=== PATIENT | male | born 1970 | race Caucasian/White ===

== ENCOUNTER 2017-01-13 00:11 | Emergency (ER) | payer OTHER ==
[~2017-01-13] VITALS: Ht 190.5 cm; Wt 72.2 kg
[~2017-01-13 00:11] MED LIST: ADVAIR HFA120 INHALA IH; ALBUTEROL17 GM IH; ALBUTEROL2.5 MG/3 M IH; ALPRAZOLAM0.5 MG PO; AMOXIL875 MG PO; AUGMENTIN500 MG PO; AUGMENTIN875 MG PO; Advair HFA 230/21 IH; BACTRIM,SEPT1 TABLET PO; BENZONATATE100 MG PO; BUSPAR5 MG PO; Bactrim,Septra DS 80 PO; Bactrim,Septra Singl PO; CEFTIN500 MG PO; CLEOCIN300 MG PO; COMBIVENT RESPIM4 GM IH; COUMADIN2 MG PO; Caltrate 600+D Plus PO; Cipro PO; DELTASONE10 MG PO; DELTASONE20 MG PO; Diflucan PO; ENDOCET 5-3251 EACH PO; ESCITALOPRAM OX10 MG PR; FAMOTIDINE20 MG PO; FLOVENT 22120 INHALA IH; Flagyl PO; HYDROCODON-ACE1 EAC7 PO; Habitrol,Nicoderm CQ TD; IBUPROFEN600 MG PO; LEVAQUIN500 MG PO; LEVAQUIN750 MG PO; LEVOFLOXACIN750 MG PO; Lactinex,Floranex PO; Levaquin PO; METOCLOPRAMIDE10 MG PO; MOTRIN600 MG PO; NAPROSYN500 MG PO; NAPROXEN500 MG PO; NIX 5% CREAM60 GM TP; NOHOMEMEDS; NORVIR100 M1; NORVIR100 M1 PO; NORVIR100 MG PO; Norvir PO; OPANA ER15 MG PO; OXYCODONE HCL30 MG PO; OXYCODONE15 MG PO; OXYMORPHONE HCL15 MG PO; OxyCODONE PO; PERCOCET; PERCOCET 5/31 TABLET PO; PHENERGAN12.5 M1 PO; PREDNISONE10 MG PO; PREDNISONE50 MG PO; PREZISTA PO; PREZISTA400 MG PO; PREZISTA800 MG PO; PRILOSEC20 MG PO; PROAIR HFA8.5 GM IH; Proventil,Ventolin H IH; ROXICODONE30 MG PO; Remeron PO; SEPTRA 80-4001 EACH PO; SPIRIVA1 INHALATI IH; STRIBILD TABLE1 EACH PO; SULFAMETHOXAZO1 EACH PO; TESSALON PERLE100 MG PO; TRUVADA 200 MG1 EACH PO; TRUVADA1 TABLET; TRUVADA1 TABLET PO; Tylenol Extra Streng PO; Tylenol Regular Stre PO; VENTOLIN HFA18 GM IH; VENTOLIN17 GM IH; Vancocin Oral Soluti PO; WARFARIN SODIUM5 MG PO; WELLBUTRIN SR150 MG PO; Xanax PO; ZITHROMAX Z-PA250 MG PO; ZITHROMAX600 MG PO; predniSONE PO
[2017-01-13 01:00] LABS: HEMATOCRIT 39.5 % (38.0-50.0); MCH 28.2 PG (29.0-34.0); MCHC 31.9 G/DL (30.0-36.0); MCV 88.4 FL (86-99); MEAN PLAT.VOLUME 10.9 uM^3 (9.0-12.4); PLATELET COUNT 266 K/uL (156-360); RBC DIS.WIDTH-CV 16.7 % (11.8-14.6); RBC DIS.WIDTH-SD 53.7 % (39-53); RED BLOOD COUNT 4.47 M/uL (4.00-5.50); WHITE BLOOD COUNT 8.6 K/uL (4.1-10.2)
[2017-01-13 01:13] LABS: CHLORIDE 102 mEq/L (99-109); POTASSIUM 4.2 mEq/L (3.7-5.4); SODIUM 140 mEq/L (136-147)
[2017-01-13 01:15] LABS: GLUCOSE 108 mg/dL (70-99)
[2017-01-13 01:16] LABS: ANION GAP 13 MEQ/L (2-14)
[2017-01-13 01:17] LABS: TOTAL BILIRUBIN 0.2 mg/dL (0.0-1.0)
[2017-01-13 01:18] LABS: ALKALINE PHOSPHATASE 116 IU/L (3-129)
[2017-01-13 01:19] LABS: GFR ESTIMATE (CALCULATED) > 59 mL/min/
[2017-01-13 01:20] LABS: UREA NITROGEN (BUN) 19 mg/dL (9-23)
[2017-01-13] MEDS ORDERED: KEFLEX500 MG PO (02:36)
[2017-01-13 02:40] VITALS: BP 99/58
== END 2017-01-13 02:52 | disposition home or self-care (01) ==
LOC: EME 00:11
PROVIDERS: Physician Assistant
DX: L03.211 Cellulitis of face (principal); Z21 Asymptomatic human immunodeficiency virus [HIV] infection status
CPT/HCPCS: 70487; 80053; 85027; 99281; 99284; J7030

== ENCOUNTER 2017-02-10 18:48 | Inpatient (IN) | payer OTHER ==
[~2017-02-10] VITALS: Ht 190.5 cm; Wt 68.3 kg
[~2017-02-10 18:48] MED LIST changes: +KEFLEX500 MG PO
[2017-02-10 19:27] LABS: BASE EXCESS 5.1 mEq/L (-3 to +3); CARBOXY HGB 5.4 % (0-5); COMMENTS - BLOOD GASES A+C+; DEVICE RA; METHEMOGLOBIN 0.6 % (0-1.5); PCO2 58 mm Hg (35-45); PO2 70 mm Hg (80-100); SITE RR; TOTAL RESP RATE 17 resp/min; pH 7.35 (7.35-7.45)
[2017-02-10 19:31] LABS: HEMATOCRIT 33.8 % (38.0-50.0); MCH 27.5 PG (29.0-34.0); MCHC 31.4 G/DL (30.0-36.0); MCV 87.6 FL (86-99); PLATELET COUNT 273 K/uL (156-360); RBC DIS.WIDTH-CV 16.9 % (11.8-14.6); RBC DIS.WIDTH-SD 54.5 % (39-53); RED BLOOD COUNT 3.86 M/uL (4.00-5.50); WHITE BLOOD COUNT 13.5 K/uL (4.1-10.2)
[2017-02-10 19:39] LABS: CHLORIDE 97 mEq/L (99-109); SODIUM 138 mEq/L (136-147)
[2017-02-10 19:41] LABS: GLUCOSE 129 mg/dL (70-99)
[2017-02-10 19:43] LABS: ANION GAP 15 MEQ/L (2-14)
[2017-02-10 19:45] LABS: GFR ESTIMATE (CALCULATED) > 59 mL/min/
[2017-02-10 19:46] LABS: UREA NITROGEN (BUN) 19 mg/dL (9-23)
[2017-02-10 19:52] LABS: TROP-I INTERPRETATION NEGATIVE; TROPONIN-I 0.02 ng/mL (0.0-0.30)
[2017-02-11 01:00] VITALS: BP 96/51
[2017-02-11 03:00] VITALS: BP 92/53
[2017-02-11 03:19] LABS: ADD MIUA? YES; BILIRUBIN NEGATIVE; BLOOD SMALL; COLOR YELLOW ((YELLOW)); GLUCOSE (STRIP) NEGATIVE; KETONES NEGATIVE; LEUKOCYTES NEGATIVE; NITRITE NEGATIVE; PROTEIN (STRIP) NEGATIVE; SPECIFIC GRAVITY 1.013 (1.000-1.030); UROBILINOGEN 0.2 MG/DL (0.2-1.0)
[2017-02-11 03:23] LABS: BACTERIA NONE SEEN /HPF; EPITHELIAL CELLS RARE /HPF; MUCUS TRACE /LPF; RED BLOOD CELLS 0-5 /HPF (0-5); UCUL ADDED? NO; WHITE BLOOD CELLS 0-5 /HPF (0-5)
[2017-02-11] MEDS ORDERED: GENVOYA TABLET1 EACH PO (04:59)
[2017-02-11] MEDS ORDERED: BACTRIM,SEPT1 TABLE1 PO (05:00)
[2017-02-11 05:13] LABS: EOSINOPHIL (%) 0.2 % (0-5); IMMATURE GRANULOCYTE (%) 0.8 % (0.0-0.7); IMMATURE GRANULOCYTE COUNT 0.1 K/uL; INSTRUMENT ABS NEUTROPHIL CT 10.8 K/uL; LYMPHOCYTE COUNT 0.4 K/uL (1.0-2.8); MCH 28.8 PG (29.0-34.0); MCHC 31.9 G/DL (30.0-36.0); MCV 90.1 FL (86-99); MEAN PLAT.VOLUME 10.6 uM^3 (9.0-12.4); MONOCYTE (%) 1.8 % (3-12); MONOCYTE COUNT 0.2 K/uL (0-0.8); NEUTROPHIL (%) 93.5 % (45-76); NEUTROPHIL COUNT 10.8 K/uL (1.8-6.4); PLATELET COUNT 226 K/uL (156-360); RBC DIS.WIDTH-CV 16.9 % (11.8-14.6); RBC DIS.WIDTH-SD 56.1 % (39-53); RED BLOOD COUNT 3.44 M/uL (4.00-5.50); WHITE BLOOD COUNT 11.6 K/uL (4.1-10.2)
[2017-02-11 05:38] LABS: ALKALINE PHOSPHATASE 115 IU/L (3-129); ANION GAP 7 MEQ/L (2-14); CHLORIDE 103 MEQ/L (99-109); DIRECT BILIRUBIN 0.1 mg/dL (0.0-0.3); GFR ESTIMATE (CALCULATED) > 59 mL/min/; GLUCOSE 161 mg/dL (70-99); POTASSIUM 4.7 MEQ/L (3.7-5.4); SAMPLE HEMOLYSIS CHECK 0; SAMPLE ICTERIC CHECK 0; SAMPLE LIPEMIA CHECK 0; SODIUM 140 MEQ/L (136-147); TOTAL BILIRUBIN 0.3 MG/DL (0.0-1.0); UREA NITROGEN (BUN) 16 mg/dL (9-23)
[2017-02-11] MEDS ORDERED: PERCOCET 10/1 TABLET PO (05:41)
[2017-02-11] MEDS ORDERED: OPANA IR10 MG PO (05:43)
[2017-02-11 07:50] VITALS: BP 83/50
[2017-02-11 08:50] LABS: INTERNAL CONTROL VALID? YES
[2017-02-11 09:39] VITALS: BP 102/59
[2017-02-11] MEDS ORDERED: PROAIR HFA8.5 GM IH (10:56)
[2017-02-11 11:17] VITALS: BP 83/56
[2017-02-11 11:38] LABS: HIV INDEX 1247.78
[2017-02-11 11:39] LABS: HIV-1/2 AB/AG COMBO REACTIVE
[2017-02-11] MEDS ORDERED: OXYMORPHONE HCL30 MG PO (11:40)
[2017-02-11] MEDS ORDERED: OXYCODONE HCL30 MG PO (11:41)
[2017-02-11 15:44] VITALS: BP 98/54
[2017-02-13 13:03] LABS: HIV RNA QUANT LOG10 RESULT 4.2 Log(10) (<1.30)
[2017-02-13 20:20] LABS: HIV 1 Antibody Positive (Negative); HIV 2 Antibody Negative (Negative)
== END 2017-02-11 16:35 | disposition left against medical advice (07) | DRG 190 ==
LOC: EME 18:48 → EDOF 22:56 → ENRESERV 23:05 → 4EAST 02-11 00:45
PROVIDERS: Emergency Medicine; Hospitalist
DX: J44.0 Chronic obstructive pulmonary disease with (acute) lower respiratory infection (principal); J18.9 Pneumonia, unspecified organism; B20 Human immunodeficiency virus [HIV] disease; I25.10 Atherosclerotic heart disease of native coronary artery without angina pectoris; M19.90 Unspecified osteoarthritis, unspecified site; F32.9 Major depressive disorder, single episode, unspecified; G43.909 Migraine, unspecified, not intractable, without status migrainosus; F17.200 Nicotine dependence, unspecified, uncomplicated; Z90.49 Acquired absence of other specified parts of digestive tract; Z95.5 Presence of coronary angioplasty implant and graft; Z93.3 Colostomy status; Z86.711 Personal history of pulmonary embolism; Z85.038 Personal history of other malignant neoplasm of large intestine
CPT/HCPCS: 36600; 71020; 80048; 80076; 81003; 82803; 83605; 84484; 85025; 85027; 86355 90; 86359 90; 86360 90; 86701 90; 86702 90; 86703; 87040; 87070; 87077; 87181; 87185; 87205; 87449; 87536; 93005; 94640; 99202; 99281; 99285; J0456; J1650; J2543; J3370; J7030; J7040; J7042; J7050; J7060; J7120; J7512; S0039

== ENCOUNTER 2017-02-11 20:15 | Inpatient (IN) | payer OTHER ==
[~2017-02-11] VITALS: Ht 190.5 cm; Wt 73.0 kg
[~2017-02-11 20:15] MED LIST changes: +BACTRIM,SEPT1 TABLE1 PO; +GENVOYA TABLET1 EACH PO; +OPANA IR10 MG PO; +OXYMORPHONE HCL30 MG PO; +PERCOCET 10/1 TABLET PO
[2017-02-11 21:19] LABS: HEMATOCRIT 31.2 % (38.0-50.0); MCH 28.3 PG (29.0-34.0); MCHC 31.7 G/DL (30.0-36.0); MCV 89.1 FL (86-99); MEAN PLAT.VOLUME 9.9 uM^3 (9.0-12.4); PLATELET COUNT 270 K/uL (156-360); RBC DIS.WIDTH-CV 16.5 % (11.8-14.6); RBC DIS.WIDTH-SD 54.4 % (39-53); WHITE BLOOD COUNT 13.4 K/uL (4.1-10.2)
[2017-02-11 21:29] LABS: SODIUM 142 mEq/L (136-147)
[2017-02-11 21:31] LABS: CHLORIDE 107 mEq/L (99-109); GLUCOSE 141 mg/dL (70-99)
[2017-02-11 21:33] LABS: ANION GAP 13 MEQ/L (2-14)
[2017-02-11 21:35] LABS: GFR ESTIMATE (CALCULATED) > 59 mL/min/
[2017-02-11 21:36] LABS: UREA NITROGEN (BUN) 17 mg/dL (9-23)
[2017-02-11 23:56] LABS: TROP-I INTERPRETATION NEGATIVE; TROPONIN-I < 0.01 ng/mL (0.0-0.30)
[2017-02-12 01:17] LABS: INFLUENZA A VIRAL ANTIGEN NEGATIVE; INFLUENZA B VIRAL ANTIGEN NEGATIVE
[2017-02-12 04:06] VITALS: BP 101/63
== END 2017-02-12 04:08 | disposition left against medical advice (07) | DRG 190 ==
LOC: EME 20:15 → EDOF 02-12 02:17 → ENRESERV 02-12 02:17 → CANRESERV 02-12 02:55 → ENRESERV 02-12 02:55 → EDOF 02-12 04:08
PROVIDERS: Emergency Medicine
DX: J44.0 Chronic obstructive pulmonary disease with (acute) lower respiratory infection (principal); J18.9 Pneumonia, unspecified organism; B20 Human immunodeficiency virus [HIV] disease; F17.200 Nicotine dependence, unspecified, uncomplicated; F12.90 Cannabis use, unspecified, uncomplicated; F32.9 Major depressive disorder, single episode, unspecified; G43.909 Migraine, unspecified, not intractable, without status migrainosus; Z85.038 Personal history of other malignant neoplasm of large intestine; Z90.49 Acquired absence of other specified parts of digestive tract; Z93.3 Colostomy status; Z86.711 Personal history of pulmonary embolism
CPT/HCPCS: 71020; 80048 91; 81003; 83605; 84484; 85027; 87040; 87070; 87205; 87449; 87502; 93005; 94640; 99281; 99285; J1100; J1956

== ENCOUNTER 2017-02-12 21:17 | Inpatient (IN) | payer OTHER ==
[~2017-02-12] VITALS: Ht 190.5 cm; Wt 75.1 kg
[2017-02-13 00:58] LABS: HEMATOCRIT 30.7 % (38.0-50.0); MCH 27.4 PG (29.0-34.0); MCHC 30.3 G/DL (30.0-36.0); MCV 90.3 FL (86-99); MEAN PLAT.VOLUME 10.3 uM^3 (9.0-12.4); PLATELET COUNT 365 K/uL (156-360); RBC DIS.WIDTH-CV 16.9 % (11.8-14.6); RBC DIS.WIDTH-SD 56.8 % (39-53); WHITE BLOOD COUNT 8.6 K/uL (4.1-10.2)
[2017-02-13 01:10] LABS: CHLORIDE 108 mEq/L (99-109); POTASSIUM 4.7 mEq/L (3.7-5.4); SODIUM 142 mEq/L (136-147)
[2017-02-13 01:12] LABS: GLUCOSE 141 mg/dL (70-99)
[2017-02-13 01:13] LABS: ANION GAP 9 MEQ/L (2-14)
[2017-02-13 01:14] LABS: TOTAL BILIRUBIN 0.1 mg/dL (0.0-1.0)
[2017-02-13 01:16] LABS: ALKALINE PHOSPHATASE 133 IU/L (3-129); GFR ESTIMATE (CALCULATED) > 59 mL/min/
[2017-02-13 01:17] LABS: TROP-I INTERPRETATION NEGATIVE; TROPONIN-I < 0.01 ng/mL (0.0-0.30); UREA NITROGEN (BUN) 19 mg/dL (9-23)
[2017-02-13 07:10] VITALS: BP 107/58
[2017-02-13 08:37] LABS: HEMATOCRIT 29.9 % (38.0-50.0); MCH 28.5 PG (29.0-34.0); MCHC 31.1 G/DL (30.0-36.0); MCV 91.7 FL (86-99); PLATELET COUNT 346 K/uL (156-360); RBC DIS.WIDTH-SD 57.6 % (39-53); RED BLOOD COUNT 3.26 M/uL (4.00-5.50); WHITE BLOOD COUNT 8.4 K/uL (4.1-10.2)
[2017-02-13 11:04] LABS: INFLUENZA A VIRAL ANTIGEN NEGATIVE; INFLUENZA B VIRAL ANTIGEN NEGATIVE
[2017-02-13 15:00] VITALS: BP 110/61
[2017-02-13 19:19] VITALS: BP 119/55
[2017-02-18 13:44] LABS: HIV RNA QUANT LOG10 RESULT 4.97 Log(10) (<1.30)
== END 2017-02-13 20:27 | disposition left against medical advice (07) | DRG 190 ==
LOC: EME 21:17 → 5EAST 02-13 04:36 → EDOF 02-13 04:36 → ENRESERV 02-13 04:37 → CANRESERV 02-13 04:54 → ENRESERV 02-13 05:36 → 5EAST 02-13 06:27
PROVIDERS: Emergency Medicine; Physician Assistant Medical
DX: J47.0 Bronchiectasis with acute lower respiratory infection (principal); J14 Pneumonia due to Hemophilus influenzae; J44.1 Chronic obstructive pulmonary disease with (acute) exacerbation; B20 Human immunodeficiency virus [HIV] disease; D64.9 Anemia, unspecified; F12.90 Cannabis use, unspecified, uncomplicated; F17.210 Nicotine dependence, cigarettes, uncomplicated; F32.9 Major depressive disorder, single episode, unspecified; G43.909 Migraine, unspecified, not intractable, without status migrainosus; R91.1 Solitary pulmonary nodule; Q24.0 Dextrocardia; Z85.038 Personal history of other malignant neoplasm of large intestine; Z90.49 Acquired absence of other specified parts of digestive tract; Z93.3 Colostomy status; Z86.711 Personal history of pulmonary embolism; Z86.718 Personal history of other venous thrombosis and embolism; Z91.19 Patient's noncompliance with other medical treatment and regimen
CPT/HCPCS: 71010; 71275; 80053; 83605; 84484; 85027; 86355 90; 86359 90; 86360 90; 87040; 87116; 87206; 87502; 87536; 93005; 94640; 99202; 99281; 99285; J0456; J0696; J1650; J2930; J7030; J7050

== ENCOUNTER 2017-03-12 22:18 | Emergency (ER) | payer OTHER ==
[~2017-03-12] VITALS: Ht 190.5 cm; Wt 66.9 kg
[2017-03-12 23:18] LABS: BASOPHIL COUNT 0.1 K/uL (0-0.1); EOSINOPHIL (%) 2.2 % (0-5); EOSINOPHIL COUNT 0.2 K/uL (0-0.3); HEMATOCRIT 36.1 % (38.0-50.0); IMMATURE GRANULOCYTE (%) 0.6 % (0.0-0.7); IMMATURE GRANULOCYTE COUNT 0.1 K/uL; INSTRUMENT ABS NEUTROPHIL CT 5.9 K/uL; LYMPHOCYTE COUNT 1.5 K/uL (1.0-2.8); MCH 28.6 PG (29.0-34.0); MCHC 32.7 G/DL (30.0-36.0); MCV 87.6 FL (86-99); MEAN PLAT.VOLUME 9.6 uM^3 (9.0-12.4); MONOCYTE (%) 6.5 % (3-12); MONOCYTE COUNT 0.5 K/uL (0-0.8); NEUTROPHIL COUNT 5.9 K/uL (1.8-6.4); PLATELET COUNT 308 K/uL (156-360); RBC DIS.WIDTH-CV 18.6 % (11.8-14.6); RBC DIS.WIDTH-SD 59.7 % (39-53); RED BLOOD COUNT 4.12 M/uL (4.00-5.50); WHITE BLOOD COUNT 8.2 K/uL (4.1-10.2)
[2017-03-12 23:26] LABS: CHLORIDE 103 mEq/L (99-109); POTASSIUM 3.9 mEq/L (3.7-5.4); SODIUM 138 mEq/L (136-147)
[2017-03-12 23:29] LABS: GLUCOSE 84 mg/dL (70-99)
[2017-03-12 23:30] LABS: ANION GAP 11 MEQ/L (2-14)
[2017-03-12 23:31] LABS: TOTAL BILIRUBIN 0.5 mg/dL (0.0-1.0)
[2017-03-12 23:32] LABS: ALKALINE PHOSPHATASE 101 IU/L (3-129); GFR ESTIMATE (CALCULATED) > 59 mL/min/
[2017-03-12 23:33] LABS: UREA NITROGEN (BUN) 14 mg/dL (9-23)
[2017-03-12 23:36] LABS: LIPASE 12 U/L (1.0-51.0)
[2017-03-13 00:29] VITALS: BP 112/73
== END 2017-03-13 01:53 | disposition left against medical advice (07) ==
LOC: EME 22:18
PROVIDERS: Emergency Medicine
DX: R10.9 Unspecified abdominal pain (principal); R11.2 Nausea with vomiting, unspecified; R19.7 Diarrhea, unspecified; N50.811 Right testicular pain; N50.812 Left testicular pain; B20 Human immunodeficiency virus [HIV] disease; Z90.49 Acquired absence of other specified parts of digestive tract; Z85.038 Personal history of other malignant neoplasm of large intestine; Z93.3 Colostomy status; K76.0 Fatty (change of) liver, not elsewhere classified; J44.9 Chronic obstructive pulmonary disease, unspecified; Z86.711 Personal history of pulmonary embolism; F17.200 Nicotine dependence, unspecified, uncomplicated; Z53.20 Procedure and treatment not carried out because of patient's decision for unspecified reasons
CPT/HCPCS: 74177; 80053; 81003; 83690; 85025; 94640; 99281; 99285; J2405; J3010; J7030

== ENCOUNTER 2017-06-20 12:23 | Emergency (ER) | payer OTHER ==
[~2017-06-20] VITALS: Ht 190.5 cm; Wt 68.1 kg
[2017-06-20 13:03] LABS: HEMATOCRIT 45.3 % (38.0-50.0); HEMOGLOBIN 14.8 G/DL (12.5-16.6); MCH 30.6 PG (29.0-34.0); MCHC 32.7 G/DL (30.0-36.0); MCV 93.8 FL (86-99); PLATELET COUNT 470 K/uL (156-360); RBC DIS.WIDTH-CV 15.2 % (11.8-14.6); RBC DIS.WIDTH-SD 51.6 % (39-53); RED BLOOD COUNT 4.83 M/uL (4.00-5.50); WHITE BLOOD COUNT 27.4 K/uL (4.1-10.2)
[2017-06-20 13:15] LABS: CHLORIDE 105 mEq/L (99-109); POTASSIUM 4.7 mEq/L (3.7-5.4); SODIUM 139 mEq/L (136-147)
[2017-06-20 13:17] LABS: GLUCOSE 131 mg/dL (70-99)
[2017-06-20 13:20] LABS: GFR ESTIMATE (CALCULATED) > 59 mL/min/ (58.99-99999)
[2017-06-20 13:21] LABS: UREA NITROGEN (BUN) 18 mg/dL (9-23)
[2017-06-20 13:24] LABS: TROP-I INTERPRETATION NEGATIVE; TROPONIN-I < 0.01 ng/mL (0.0-0.30)
[2017-06-20] MEDS ORDERED: LEVAQUIN750 MG PO (14:48)
[2017-06-20 16:08] VITALS: BP 118/86
== END 2017-06-20 16:13 | disposition home or self-care (01) ==
LOC: EME 12:23
PROVIDERS: Emergency Medicine
DX: J44.1 Chronic obstructive pulmonary disease with (acute) exacerbation (principal); R00.0 Tachycardia, unspecified; I51.7 Cardiomegaly; I44.4 Left anterior fascicular block; J98.4 Other disorders of lung; I25.10 Atherosclerotic heart disease of native coronary artery without angina pectoris; B20 Human immunodeficiency virus [HIV] disease; F32.9 Major depressive disorder, single episode, unspecified; F17.200 Nicotine dependence, unspecified, uncomplicated; Z79.891 Long term (current) use of opiate analgesic; Z85.038 Personal history of other malignant neoplasm of large intestine; Z86.711 Personal history of pulmonary embolism
CPT/HCPCS: 71046; 71250; 80048; 84484; 85027; 87502; 93005; 94640; 99281; 99285; J0456; J0696

== ENCOUNTER 2017-06-22 14:28 | Inpatient (IN) | payer OTHER ==
[~2017-06-22] VITALS: Ht 190.5 cm; Wt 62.8 kg
[2017-06-22 15:05] VITALS: BP 128/88
[2017-06-22] MEDS ORDERED: NEURONTIN300 MG PO (15:23)
[2017-06-22] MEDS ORDERED: PREZCOBIX 8001 EACH PO (15:29)
[2017-06-22] MEDS ORDERED: DESCOVY 200-251 EACH PO (15:29)
[2017-06-22 15:52] VITALS: BP 114/73
[2017-06-23 00:06] VITALS: BP 120/71
[2017-06-23 07:13] VITALS: BP 116/69
[2017-06-23 07:23] LABS: CHLORIDE 101 MEQ/L (99-109); CREATININE 0.9 MG/DL (0.6-1.3); GFR ESTIMATE (CALCULATED) > 59 mL/min/ (58.99-99999); GLUCOSE 88 mg/dL (70-99); POTASSIUM 4.6 MEQ/L (3.7-5.4); SODIUM 136 MEQ/L (136-147); UREA NITROGEN (BUN) 27 mg/dL (9-23)
[2017-06-23 07:32] LABS: BASOPHIL (%) 0.9 % (0-1); BASOPHIL COUNT 0.1 K/uL (0-0.1); EOSINOPHIL (%) 3.6 % (0-5); EOSINOPHIL COUNT 0.5 K/uL (0-0.3); HEMATOCRIT 40.6 % (38.0-50.0); IMMATURE GRANULOCYTE (%) 1.1 % (0.0-0.7); LYMPHOCYTE (%) 8.8 % (15-42); LYMPHOCYTE COUNT 1.1 K/uL (1.0-2.8); MCHC 32.5 G/DL (30.0-36.0); MCV 95.3 FL (86-99); MONOCYTE (%) 7.9 % (3-12); NEUTROPHIL (%) 77.7 % (45-76); NEUTROPHIL COUNT 9.8 K/uL (1.8-6.4); RBC DIS.WIDTH-CV 15.2 % (11.8-14.6); RBC DIS.WIDTH-SD 51.7 % (39-53); RED BLOOD COUNT 4.26 M/uL (4.00-5.50); WHITE BLOOD COUNT 12.6 K/uL (4.1-10.2)
[2017-06-23 07:33] LABS: HEMOGLOBIN 13.2 G/DL (12.5-16.6)
[2017-06-23 08:14] LABS: PLAT.SUFFICIENCY ADEQUATE; PLATELET COUNT 327 K/uL (156-360)
[2017-06-23 08:40] LABS: APPEARANCE CLEAR ((CLEAR)); BILIRUBIN NEGATIVE; BLOOD NEGATIVE; COLOR YELLOW ((YELLOW)); GLUCOSE (STRIP) NEGATIVE; KETONES NEGATIVE; LEUKOCYTES NEGATIVE; NITRITE NEGATIVE; PROTEIN (STRIP) NEGATIVE; SPECIFIC GRAVITY 1.024 (1.000-1.030); UCUL ADDED? NO; UROBILINOGEN 0.2 MG/DL (0.2-1.0)
[2017-06-23 11:00] VITALS: BP 112/66
[2017-06-23 15:38] VITALS: BP 115/70
[2017-06-23 20:20] VITALS: BP 121/68
[2017-06-24 00:09] VITALS: BP 112/64
[2017-06-24 08:41] VITALS: BP 109/63
[2017-06-24 16:15] VITALS: BP 117/67
[2017-06-25 00:01] VITALS: BP 101/62
[2017-06-25 07:14] LABS: BASOPHIL (%) 0.1 % (0-1); EOSINOPHIL (%) 0 % (0-5); HEMATOCRIT 34.7 % (38.0-50.0); HEMOGLOBIN 11.4 G/DL (12.5-16.6); IMMATURE GRANULOCYTE (%) 0.4 % (0.0-0.7); LYMPHOCYTE (%) 3.1 % (15-42); LYMPHOCYTE COUNT 0.6 K/uL (1.0-2.8); MCH 31.2 PG (29.0-34.0); MCHC 32.9 G/DL (30.0-36.0); MCV 95.1 FL (86-99); MONOCYTE (%) 4.2 % (3-12); MONOCYTE COUNT 0.8 K/uL (0-0.8); NEUTROPHIL (%) 92.2 % (45-76); NEUTROPHIL COUNT 16.6 K/uL (1.8-6.4); PLATELET COUNT 282 K/uL (156-360); RBC DIS.WIDTH-SD 51.8 % (39-53); RED BLOOD COUNT 3.65 M/uL (4.00-5.50)
[2017-06-25 07:47] LABS: CHLORIDE 105 MEQ/L (99-109); CREATININE 0.8 MG/DL (0.6-1.3); GFR ESTIMATE (CALCULATED) > 59 mL/min/ (58.99-99999); GLUCOSE 113 mg/dL (70-99); POTASSIUM 4.6 MEQ/L (3.7-5.4); SODIUM 139 MEQ/L (136-147); UREA NITROGEN (BUN) 24 mg/dL (9-23)
[2017-06-25 08:47] VITALS: BP 112/55
[2017-06-25 17:20] VITALS: BP 132/62
[2017-06-25 22:30] VITALS: BP 138/62
[2017-06-26 07:41] VITALS: BP 131/73
[2017-06-26 15:41] VITALS: BP 121/65
[2017-06-26] MEDS ORDERED: LEVAQUIN750 MG PO (18:12)
[2017-06-26] MEDS ORDERED: PREDNISONE10 MG PO (18:14)
[2017-06-26] MEDS ORDERED: ADVAIR 250/501 DISK IH (18:15)
[2017-06-26] MEDS ORDERED: PROAIR HFA8.5 GM IH (18:15)
== END 2017-06-26 19:50 | disposition home or self-care (01) | DRG 190 ==
LOC: 5EAST 14:28 → ENRESERV 14:29 → 5EAST 14:53
PROVIDERS: Family Medicine Sports Medicine
DX: J44.1 Chronic obstructive pulmonary disease with (acute) exacerbation (principal); J18.0 Bronchopneumonia, unspecified organism; J44.0 Chronic obstructive pulmonary disease with (acute) lower respiratory infection; B20 Human immunodeficiency virus [HIV] disease; G89.29 Other chronic pain; K21.9 Gastro-esophageal reflux disease without esophagitis; D64.9 Anemia, unspecified; F41.9 Anxiety disorder, unspecified; M19.90 Unspecified osteoarthritis, unspecified site; E78.5 Hyperlipidemia, unspecified; I10 Essential (primary) hypertension; F17.210 Nicotine dependence, cigarettes, uncomplicated; Z71.6 Tobacco abuse counseling; F12.10 Cannabis abuse, uncomplicated; Z91.19 Patient's noncompliance with other medical treatment and regimen; Z85.048 Personal history of other malignant neoplasm of rectum, rectosigmoid junction, and anus; Z93.3 Colostomy status; Z92.21 Personal history of antineoplastic chemotherapy; Z90.49 Acquired absence of other specified parts of digestive tract; Z85.72 Personal history of non-Hodgkin lymphomas; Z87.01 Personal history of pneumonia (recurrent)
CPT/HCPCS: 36415; 71046; 71250; 80048; 81003; 83605; 84484; 85025; 85027; 87040; 87070; 87106; 87205; 87449; 87502; 90686; 93005; 94640; 94640 76; 94760; 94799; 99202; 99281; 99285; A6214; J0456; J0696; J1650; J2930; J7120; J7512